=== PATIENT | female | born 2000 | race Caucasian/White ===

== ENCOUNTER 2023-08-24 20:58 | Emergency (ER) | payer OTHER ==
[2023-08-24 21:28] LABS: Bilirubin Neg (Negative); Blood, Urine 150 (Negative); Glucose, Urine (Dipstick) Normal (Negative); Ketone, Urine Negative (Negative); Leukocyte 500 (Negative); Nitrite Negative (Negative); Protein, Urine (Dipstick) 100 mg/dl (Neg-Trace); Urobilinogen Normal mg/dL (Less than 2)
[2023-08-24 22:02] LABS: Clarity Slightly Cloudy (Clear); Pregnancy Test - Urine (BHCG) Negative (Negative); Pregu Control Background? CLEAR/WHITE (CLR/WHITE); Pregu Control Bar Appear? YES (CONTROL BAR)
[2023-08-24 22:13] LABS: Bacteria/HPF 2+ HPF (None Seen); CAUTI Indications for Culture Pelvic or flank pain; WBC/HPF 21-50 HPF (0-3)
[2023-08-24 22:15] LABS: Transitional Epithelial 0-3 HPF (None Seen)
[2023-08-24 22:16] LABS: Urine Culture Reflex Yes Yes
[2023-08-24] MEDS ORDERED: Cefdinir 300 MG CAP ONE (22:39)
== END 2023-08-24 22:47 | disposition home or self-care (01) ==
LOC: CSHERS 20:58
DX: N39.0 Urinary tract infection, site not specified (principal)
CPT/HCPCS: 81001; 81025; 87086; 99283